=== PATIENT | female | born 1980 | race Caucasian/White ===

== ENCOUNTER 2017-07-27 15:39 | Emergency (ER) | payer SELFPAY ==
[~2017-07-27] VITALS: Ht 160 cm; Wt 63.5 kg
[2017-07-27 15:42] VITALS: BP 176/95; PULSE 102; RESP 20; TEMP 99; O2SAT 99
--- NOTE | 2017-07-27 16:08 | RADRPT ---
EXAM DATE/TIME: 07/27/2017 15:57 [place] COMPARISON: No previous studies available for comparison. INDICATIONS : Right wrist pain, fall. MEDICAL HISTORY : None. SURGICAL HISTORY : None. ENCOUNTER: Initial ACUITY: 2 days PAIN SCORE: 10/10 LOCATION: Right lateral wrist FINDINGS: Three view examination of the right wrist demonstrates no soft tissue swelling, dislocation, or fract ure. The carpal bones are in normal alignment. The joint spaces are maintained. Bony mineralizatio n is normal. CONCLUSION: 1. No acute bony abnormality identified. Alek Topete MD on July 27, 2017 at 16:05 Board Certified Radiologist. This report was verified electronically.
--- NOTE | 2017-07-27 17:04 | PD ---
HPI Chief Complaint: Injury Time Seen by Provider: 16:51 Travel History International Travel<30 days: No Contact w/Intl Traveler<30days: No Traveled to known affect area: No History of Present Illness HPI Patient comes emergency department complaining of pain over the ulnar aspect of her right wrist that began yesterday after mechanical fall. Patient reports she caught herself using her right hand which initiated the pain. Denies any radiation of pain. Pain is worse with certain movement and palpation of the right wrist. Patient reports she broke this wrist in the past. Patient reports icing and ibuprofen for symptomatic relief. Denies any numbness or tingling. Denies head injury or loss of consciousness. Denies . Severity mild. Patient is right-hand dominant. [facility] Past Medical History Medical History: Denies Significant Hx Tetanus Vaccination: < 5 Years Influenza Vaccination: No ?: Not Past Surgical History Hysterectomy: Yes Social History Alcohol Use: Yes (EVERY OTHER DAY) Tobacco Use: Yes Substance Use: No Allergies-Medications (Allergen,Severity, Reaction): Coded Allergies: No Known Allergies (Unverified , 07/27/17) Review of Systems Except as stated in HPI: all other systems reviewed are Neg Physical Exam Narrative GENERAL: Well-developed, well nourished, in no acute distress, and non-ill appearing. SKIN: Focused skin assessment warm and dry. HEAD: Atraumatic. Normocephalic. EYES: Pupils equal and round. EOMI. No scleral icterus. No injection or drainage. ENT: No nasal bleeding or discharge. Mucous membranes pink and moist. NECK: Trachea midline. Supple. No nuclear rigidity. CARDIOVASCULAR: Radial pulses 2+, intact, and equal bilaterally. Capillary refill less than 2 seconds. RESPIRATORY: No accessory muscle use. No respiratory distress. MUSCULOSKELETAL: No obvious deformities. No clubbing. No cyanosis. No edema. Full range of motion. Wrist: FROM and equal BL with passive flexion, extension , and pronation/supination. Capillary refill less than 2 seconds distal to injury and equal BL. FROM distal to injury and equal BL. Strength distal to injury equal BL. NV intact distal to injury. Flexion and extension of thumb equal BL. Equal strength and movement with abduction/adductions of BL fingers. Imaging Engineer strength equal BL. No tenderness to the anatomical snuffbox. Patient reports point tenderness over ulnar aspect of right wrist. No crepitus. NEUROLOGICAL: Awake and alert. No obvious cranial nerve deficits. Motor grossly within normal limits. Normal speech. PSYCHIATRIC: Appropriate mood and affect; insight and judgment normal. Data Data Last Documented VS Vital Signs Date Time Temp Pulse Resp B/P (MAP) Pulse Ox O2 Delivery O2 Flow Rate FiO2 07/27/17 15:42 99.0 102 20 176/95 (122) 99 Orders Orders Wrist, Complete ([id number]) (07/27/17 ) Ed Discharge Order (07/27/17 16:58) Splint Or Brace Apply/Monitor (07/27/17 16:58) [facility] Medical Decision Making Medical Screen Exam Complete: Yes Emergency Medical Condition: Yes Interpretation(s) Last Impressions Wrist X-Ray 07/27/17 0000 Signed Impressions: Service Date/Time: Saturday, July 27, 2017 15:57 - CONCLUSION: 1. No acute bony abnormality identified. Alek Topete MD Differential Diagnosis Fracture, sprain, dislocation, contusion Narrative Course There is no clinical evidence for fracture. There is no clinical evidence to suspect bony injury by exam. Radiographic examination revealed no fracture seen at this time. No obvious ligamental injury or internal derangement is noted at this time. The distal extremity appears neurovascularly intact, without evidence of neurovascular injury nor compartment syndrome. Tendon exam also was intact. The effected limb was splinted. The patient was discharged with sprain and splint care instructions and given warnings for vascular compromise. The patient is to follow up with primary care provider and/or hand surgeon. The patient agrees with plan. Patient in no obvious distress upon re-evaluation. All pertinent Radiology result(s) discussed with patient. Any questions/concerns in reference to patient diagnosis/condition discussed and clarified prior to patient's discharge. Reinforced sheer importance of close follow up with patient's primary physician or primary care clinic and/or hand surgeon. Instructed patient to return to ED immediately, if symptoms return/worsen. Patient showed understanding of above instructions. Further instructions and recommendations were detailed in discharge paperwork. Patient ambulated without difficulty out of ED at discharge. Diagnosis Primary Impression: Right wrist sprain Qualified Codes: S63.501A - Unspecified sprain of right wrist, initial encounter Referrals: Susan Ramirez MD [facility] Patient Instructions: General Instructions, Splint Care (ED), Wrist Sprain (ED) Additional Instructions: Follow-up with your primary care physician and/or hand surgeon this week for reevaluation. Use [id number] Tylenol and ibuprofen for pain control. Follow instructions on the packaging. Apply ice to affected area 20 min/h as needed for pain. Wear wrist splint as needed for comfort until reevaluated. Return to the emergency department if symptoms get worse. Disposition: 01 DISCHARGE HOME Condition: Stable Oswaldo Delacruz Jul 27, 2017 17:04
== END 2017-07-27 17:26 | disposition home or self-care (01) ==
LOC: NEPD 15:39
DX: S63.501A Unspecified sprain of right wrist, initial encounter (principal); Z72.0 Tobacco use; W18.30XA Fall on same level, unspecified, initial encounter
CPT/HCPCS: 73110; 99283; L3908